=== PATIENT | female | born 1965 | race Caucasian/White ===

== ENCOUNTER 2016-08-28 16:14 | Observation (INO) | payer OTHER ==
[~2016-08-28] VITALS: Ht 152.4 cm; Wt 88.1 kg
[~2016-08-28 16:14] MED LIST: ASPI81TA3 PO; ATOR20TA65 PO; IBUP-1827 PO; INSU100V7; LISI-610 PO; LVF250T PO; METF500T7 PO
[2016-08-28 16:19] VITALS: BP 133/96; PULSE 86; RESP 18; O2SAT 97
--- NOTE | 2016-08-28 16:27 | ED.REPORT ---
HPI-Stroke / CVA Aug 28, 2016 ED Provider: Raul Hernández MD Pt is a 50 y/o female w/ a hx of IDDM, TIA, HTN, presenting to the ED c/o gradually improving stroke-like symptoms onset 15:00 today. The patient is not anticoagulated. She takes ASA daily. Pt suddenly felt dizzy and off balanced and developed right sided facial numbness and now is experiencing right-sided weakness, numbness, and blurred vision. Pt denies recent trauma, speech changes , CP, SOB, vomiting. She was seen April 2015 for a TIA in which she experienced right sided numbness and weakness. Nursing Notes Stated Complaint: SYMTOMS OF TIA Chief Complaint: Neuro Symptoms/ Deficits Nursing Notes Reviewed: Yes Allergies: Coded Allergies: iodine (Verified Allergy, Severe, 08/28/16) Penicillins (Verified Allergy, Mild, rash, 08/28/16) Scheduled Aspirin Chew (Aspirin Chew) 81 Mg Tablet 81 MG PO DAILY Atorvastatin Calcium (Atorvastatin Calcium) 20 Mg Tablet 20 MG PO HS Insulin Glargine (Lantus U100 Insulin Vial) 100 Unit/Ml Vial 50 UNIT SUBQ HS ( Reported) Lisinopril (Zestril) 10 Mg Tablet 10 MG PO HS (Reported) General Time Seen by Provider: 16:28 Chief Complaint Numbness Right-sided Hx Obtained From: Patient Arrived By: Walk-in Time last known well 15:00 Sudden in Onset?: Yes Symptom Duration: Since onset Progression Since Onset: Gradually improving Severity: Current: No pain currently Severity: Maximum: No pain Recent Healthcare: Previous diagnosis Similar Sx Previous: Yes Risk Factors )( TPA Administration/Criteria Stroke Thrombolytic Therapy : TPA Considered: Yes Neurologist Contacted: Yes TPA Administered Intravenously: No, not indicated NIH Stroke Scale Level of Consciousness: Alert and responsive (0) Ask Month & Age: Both questions right (0) Open/Close Eyes/Hand Footwear Sales Associate: Performs both tasks (0) Horizontal EO Movements: None (0) Visual Espinosa: No visual loss (0) Facial Palsy: Normal symmetry (0) Right Arm Motor Drift (10s): No drift 10 sec (0) Left Arm Motor Drift (10s): No drift 10 sec (0) Right Leg Motor Drift (5s): Drift, not touch bed (1) Left Leg Motor Drift (5s): No drift 5 sec (0) Limb Ataxia FNF/Heel-Olivarez: No ataxia (0) Sensation (Arms/Legs/Face): No sensory loss (0) Language Aphasia: No aphasia, normal (0) Dysarthria: No dysarthria, normal (0) Extinction/Inattention: No exctinct/inattent (0) NIHSS Score: 1 Time NIHSS Performed: 16:43 Date NIHSS Performed: Aug 28, 2016 Past Medical History Past Medical History IDDM TIA Asthma Hypertension Anxiety Depression Past Surgical History Tubal ligation Smoking History Never Smoker Social History Other Social History: , Local resident Occupation WATER SUPPLY TECHNICIAN at [employer] Ambulatory Status Independent Review of Systems Eyes: Reports: Blurred right Respiratory: Denies: Shortness of breath Cardiovascular: Denies: Chest pain Neurologic: Reports: Dizziness, Focal weakness, Numbness, Problem walking, Vision change, Denies: Slurred speech, Unable to speak Complete sys rev & neg: except as marked. Physical Exam Initial Vital Signs Vital Signs (First) Date Time Temp Pulse Resp B/P Pulse Ox O2 Delivery O2 Flow Rate FiO2 08/28/16 16:19 35.6 86 18 133/96 97 Room Air Initial VS: Reviewed, Vital signs normal ENT: Mucous membranes moist, Conjunctiva normal, No scleral icterus Abdomen / GI: Soft, Non-tender, No guarding, No rebound, No distention Extremities: Vascular intact, Neuro intact, No swelling, No tenderness Skin: Warm, Dry, No cyanosis Psychiatric: Mood/affect normal, Behavior normal, Normal thought content General/Constitutional: Awake, Alert, No acute distress, Well appearing, Cooperative, Not toxic appearing Head / Eyes: Atraumatic, Normocephalic, PERRL, EOMI, No nystagmus, No periorbital redness, No periorbital swelling Neck: Atraumatic, Supple, No meningismus, Full range of motion Respiratory / Chest: Atraumatic, Breath sounds NL, Breath sounds = bilat, No respiratory distress, No rales, No rhonchi, No wheezing, No retractions, No stridor, No chest tenderness, No chest wall deformity, No crepitus Cardiovascular: Heart rate NL, Regular rhythm, Heart sounds NL, No gallop, No murmurs, No rubs, Cap refill not delayed, Peripheral circulation NL Neurologic: Oriented X3, Speech NL, No sensory deficits, CN II - XII intact, Cerebellar NL, Memory NL NIH = 1 Interpretation & Diagnostics Interpretation & Diagnostics: Head/neck CTA with brain perfusion: IMPRESSION: 1. High grade stenosis of the supraclinoid segments of the internal carotid arteries bilaterally which could be secondary to soft atherosclerotic plaque, moyamoya disease or less likely nonocclusive thrombus. 2. Vertebral arteries are fully patent bilaterally. 3. Findings telephoned to Dr. Raul Hernández on 08/28/2016 at 1823 hrs. Dictated by: Denise Salgado MD, PhD on 08/28/2016 at 18:14 Approved by: Denise Salgado MD, PhD on 08/28/2016 at 18:27 Lab Results Interpretation Result Diagram: 08/28/16 1642 08/28/16 1642 Test 08/28/16 16:42 White Blood Count 6.1th/mm3 (3.8-10.1) Red Blood Count 4.93mil/mm3 (3.90-5.20) Hemoglobin 15.2g/dL (12.0-15.6) Hematocrit 42.0% (35.0-46.0) Mean Corpuscular Volume 85.2fL (81-100) Mean Corpuscular Hemoglobin 30.8pg (27.0-35.0) Mean Corpuscular Hemoglobin Concent 36.2% (32.0-37.0) Red Cell Distribution Width 12.1% (12.3-15.4) Platelet Count 229bil/L (150-400) Neutrophils (%) (Auto) 42.2% (40-74) Lymphocytes (%) (Auto) 46.6% (14-46) Monocytes (%) (Auto) 9.0% (4-12) Eosinophils (%) (Auto) 1.5% (0-5) Basophils (%) (Auto) 0.5% (0-3) Prothrombin Time 9.9sec (8.1-12.5) Prothromb Time International Ratio 0.93ratio Activated Partial Thromboplast Time 22.9sec (22.8-33.0) Sodium Level 134mEq/L (134-144) Potassium Level 4.4mEq/L (3.5-5.2) Chloride Level 97mEq/L (97-108) Carbon Dioxide Level 21mmol/L (18-29) Blood Urea Nitrogen 18mg/dL (6-24) Creatinine 0.43mg/dL (0.57-1.00) Estimat Glomerular Filtration Rate 224mL/min (>59) Glucose Level 414mg/dL (60-99) Calcium Level 8.9mg/dL (8.5-10.1) Total Bilirubin 0.3mg/dL (0.0-1.2) Aspartate Amino Transf (AST/SGOT) 16U/L (0-50) Alanine Aminotransferase (ALT/SGPT) 15U/L (0-32) Alkaline Phosphatase 101U/L (25-150) Troponin T < 0.010ug/L (0.0-0.011) Total Protein 6.9g/dL (6.4-8.4) Albumin 4.1g/dL (3.4-5.0) Hold Ansari Top Tube Received (Received) ECG Interpretation ECG Interpretation: Sinus rhythm rate 83 LVH Time: 16:59 Interpreted by: ED physician Normal ECG Interpretation: No acute ischemic changes, No change from prior ECGs CT Head Interpretation IMPRESSION: No stroke or hemorrhage, no mass identified. No contraindication to TPA administration found. This information was immediately called to the ordering health care provider at 4:40 in the afternoon. This study fulfills neurological imaging criteria for inclusion or exclusion of acute stroke therapies based on available published neurological imaging guidelines. Dictated by: Wes Power M.D. on 08/28/2016 at 16:38 Approved by: Wes Power M.D. on 08/28/2016 at 16:41 Study: Head CT no contrast Interpretation / Wet Read by: Interpret - Radiologist Re-Eval/Medical Decision Med Decision/Clinical Course 50-year-old female history of TIA, insulin-dependent diabetes presenting with right face numbness, right upper extremity and right lower extremity weakness started at 3 PM today. Patient arrived in code stroke was called immediately. CT head performed immediately with no evidence of hemorrhage. Blood sugar 300s. Blood pressure is 140s over 80. NIH stroke scale 1 for right lower extremity drift. [place] neurology consulted immediately recommended no TPA given low stroke scale. They recommended CT angiogram brain which was performed which showed high-grade stenosis cavernous supraclinoid internal carotids bilateral. Consulted [place] neurology again who did not think any indication for intervention at this time. Recommended admission at our hospital for stroke workup with MRI, echocardiogram, aspirin and Plavix for 90 days. Source of Hx: Old records Re-Evaluation/Progress #1: Time of Eval: 17:18 Re-Evaluation/Progress Note: Pt rechecked. She is feeling better and symptoms have improved. Of note, she was able to walk independently to the bathroom prior to this recheck. She has an allergy to contrast listed but she denies that this is true. Re-Evaluation/Progress #2: Time of Eval: 18:41 Re-Evaluation/Progress Note: Pt rechecked. Informed pt of need for admission for further evaluation. Pt understands and agrees with plan for admission. All questions addressed. Consultation #1: Consulted With: Neurology Call Returned at: 16:57 Note: Case discussed with [place] neurologist. Does not recommend TPA. 1830: Recallled neurologist after CTA is back. Recommends admit. Consultation #2: Referral / Consult Name: Michael Daniel MD Consulted With: Hospitalist Call Returned at: 18:47 Acoustical Tile Patternmaker: Will see patient, Agrees with eval, Agrees with plan, Accepts admit Note: Case discussed. Counseled Regarding: Diagnosis, Lab results, Need for admission Patient Discharge & Departure Impression: Primary Impression: CVA (cerebral vascular accident) CVA mechanism: stenosis Precerebral and cerebral artery: unspecified precerebral artery Qualified Code: I63.20 - Cerebral infarction due to unspecified occlusion or stenosis of unspecified precerebral arteries Ruled Out: Allergy to iodine Disposition: ADMITTED TO HOSPITAL Discharge Condition All VS Reviewed: Yes Condition: Stable Referrals: Toño Laguna MD (PCP) Ariane Attestation Portions of this note were transcribed by Herrera Jackson. I, Dr. Hernández personally performed the history, physical exam and medical decision-making; I reviewed and confirmed the accuracy of the information in the transcribed note. Signed by Ariane Quarles, 08/28/16 - [id number] copies to: Toño Laguna MD, Ben M MD Aug 28, 2016 16:27 HERRERA JACKSON Aug 28, 2016 16:31
--- NOTE | 2016-08-28 16:42 | DRSVH ---
PROCEDURE: CT BRAIN (TPA) ([id number]) INDICATIONS: Stroke TECHNIQUE: Noncontrast 4.5 mm thick angled axial sections acquired from the foramen magnum to the vertex, with c oronal reformats. COMPARISON: [facility], CT, CT BRAIN WO CON, 04/24/2015, 21:38. FINDINGS: Image quality: Excellent. CSF spaces: Basal cisterns are patent. No extra-axial fluid collections. Ventricles are normal in size and shape. Brain: No midline shift. No intracranial masses or hemorrhage. Thurman-white matter interface is norm al. Skull and face: Calvarium and visualized facial bones are intact, without suspicious lesions. Sinuses: Visualized sinuses and mastoids are clear. IMPRESSION: No stroke or hemorrhage, no mass identified. No contraindication to TPA administration f ound. This information was immediately called to the ordering health care provider at 4:40 in the [facility]. This study fulfills neurological imaging criteria for inclusion or exclusion of acute stroke therapie s based on available published neurological imaging guidelines. Dictated by: Wes Power M.D. on 08/28/2016 at 16:38 Approved by: Wes Power M.D. on 08/28/2016 at 16:41
[2016-08-28] MEDS ORDERED: INSU100V7 SUBQ (16:46)
[2016-08-28 16:47] VITALS: BP 140/80; PULSE 85; RESP 23; O2SAT 96
[2016-08-28 16:54] LABS: BASOPHILS % (AUTO) 0.5 % (0-3); EOSINOPHILS % (AUTO) 1.5 % (0-5); Mean Corpuscular Hemoglobin 30.8 pg (27.0-35.0); Mean Corpuscular Volume 85.2 fL (81-100); NEUTROPHILS % (AUTO) 42.2 % (40-74); Platelet Count 229 bil/L (150-400)
[2016-08-28 17:08] LABS: INR 0.93 ratio
[2016-08-28 17:28] LABS: TROPONIN T < 0.010 ug/L (0.0-0.011)
[2016-08-28] MEDS ORDERED: Insulin LISPRO 300 Unit/3 mL Inj SUBQ ONE (17:55)
--- NOTE | 2016-08-28 18:28 | DRSVH ---
PROCEDURE: CT ANGIO HEAD AND NECK (P) INDICATIONS: STAT READ - CALL ED PROVIDER W/RESULTS TECHNIQUE: Pre-contrast 4.5 mm thick sections acquired from the foramen magnum to the vertex. After the adminis tration of intravenous contrast, 1 mm thick sections acquired from the aortic arch through the [place] of [place]. Post-contrast 4.5 mm thick sections then re-acquired from the foramen magnum to the vert ex. 3-dimensional rorhcgf-fmeqywlhg-jwbaxppgaq (MIP) and/or volume rendering reformats were acquired of the central intracranial vasculature and neck separately. For radiation dose reduction, the foll owing was used: automated exposure control, adjustment of mA and/or kV according to patient size. COMPARISON: [facility], CT, BRAIN (TPA), 08/28/2016, 16:34. FINDINGS: Image quality: Excellent. BRAIN: CSF spaces: Ventricles are normal in size and shape. Basal cisterns are patent. No extra-axial flu id collections. Brain: No midline shift. No intracranial bleeds or masses. Thurman-white matter interface appears int act. Skull and face: Calvarium and facial bones appear intact, without suspicious lesions. Orbits appear normal. Sinuses: Mucosal thickening noted in the floors of the maxillary sinuses bilaterally. The mastoids are clear. HEAD CT ANGIOGRAPHY: Anterior circulation: Calcified atherosclerotic plaque noted in the cavernous segments of the internet sales consultant al carotid arteries bilaterally. There is high-grade stenosis of the supraclinoid segments internal carotid arteries bilaterally. High-grade stenosis may be related to soft atherosclerotic plaque, hodan amoya disease or less likely nonocclusive thrombus. The flow within the paired anterior cerebral art eries is normal and symmetric. The flow within the middle cerebral arteries is normal and symmetric. The anterior communicating artery is seen. Normal flow in the posterior to meeting arteries is note d. No aneurysms are seen. Posterior circulation: Visualized portions of the vertebral arteries demonstrate normal caliber, and join to form a normal appearing basilar artery. Flow within the posterior cerebral arteries is norm al and symmetric. No aneurysms are seen. Dural sinuses enhance normally. NECK CT ANGIOGRAPHY: Carotid system: The great vessels demonstrate a conventional anatomy as they arise from the aortic a rch. The origins of the common carotid arteries appear patent. The common carotid arteries demonstr ate normal caliber and courses. The bifurcation regions are both widely patent. The internal caroti d arteries demonstrate normal calibers and courses. Posterior circulation: The origins of the vertebral arteries both appear widely patent. The more arreola perior extracranial portions of both vertebral arteries also demonstrate normal courses and calibers. They join to form a normal appearing basilar artery. Soft tissues: Visualized neck soft tissues demonstrate no suspicious abnormalities. Bones: No suspicious bony lesions. Visualized cervical spine appears normally aligned. IMPRESSION: 1. High grade stenosis of the supraclinoid segments of the internal carotid arteries bilaterally whi ch could be secondary to soft atherosclerotic plaque, moyamoya disease or less likely nonocclusive th rombus. 2. Vertebral arteries are fully patent bilaterally. 3. Findings telephoned to Dr. Raul Hernández on 08/28/2016 at 1823 hrs. Dictated by: Denise Salgado MD, PhD on 08/28/2016 at 18:14 Approved by: Denise Salgado MD, PhD on 08/28/2016 at 18:27
[2016-08-28] MEDS ORDERED: Alum-Mag Hydrox-Simeth 30 mL Suspension PO PRN (18:50)
[2016-08-28] MEDS ORDERED: Ondansetron 2 mg/mL 2 mL Inj IVPUSH PRN (18:50)
[2016-08-28] MEDS: 0.9% Sodium Chloride 1,000 ML IV SCH (19:08)
[2016-08-28] MEDS ORDERED: Polyethylene Glycol (PEG) 17 Gm Powder PO PRN (19:10)
[2016-08-28] MEDS ORDERED: Glucose 40% Oral Gel 15 Gm Tube PO PRN (19:15)
--- NOTE | 2016-08-28 19:58 | PCM.HPMED ---
Subjective Date of Service Aug 28, 2016 Primary Provider: Admitting Physician: Michael Daniel MD Primary Care Physician: Sergei Steven DO Attending Physician: Michael Daniel MD Admit Status: From the Emergency Department, 23-Hour Observation Chief Complaint: Right-sided weakness/2 hrs Right facial numbness/2 hrs Vertigo and right visual disturbance/2hrs History of Present Illness: 50-year-old lady with past medical history of TIA, diabetes, asthma, hypertension, anxiety/depression came into emergency room due to sudden onset right-sided weakness, right facial numbness, right eye visual disturbance, headache, vertigo of 2 hrs. Last known to be well at 3 PM. She states she developed sudden onset right facial numbness and right-sided headache at 3 PM. She also noted flashing of light on her right eye. She went to the bathroom and she also had an episode of vertigo, she describes it as the room spinning. She then noted her right facial numbness progressing to involve right arm numbness and weakness which prompted ED visit. She states most of her symptoms were resolving immediately after she arrived in ED. She had similar symptoms 1 year ago and was treated as TIA. She takes aspirin 81 mg daily and atorvastatin. She has diabetes poorly controlled, she was recently switched to Lantus 50 units at bedtime from Humalog and metformin. in ED, BP 133/96, HR 86, initial NIHSS 1 ( right leg drift) .on my reval 0 CTA High grade stenosis of the supraclinoid segments of the internal carotid arteries bilaterally which could be secondary to soft atherosclerotic plaque, moyamoya disease or less likely nonocclusive thrombus. [facility] neurology consulted ,not a candidate for tpa due rapidly resolving symptoms and low NIHSS . Recommended treating her with aspirin and Plavix for 3 months and single antiplatelet after that Review of Systems: A comprehensive review of systems performed, pertinent positives and negatives included in history of present illness Allergies Coded Allergies: iodine (Verified Allergy, Severe, 08/28/16) Penicillins (Verified Allergy, Mild, rash, 08/28/16) Home Medications Aspirin 81 mg by mouth daily atorvastatin 40 mg by mouth daily Lantus 50 units at bedtime Lisinopril 10 mg daily Metformin recently discontinued PMH TIA, diabetes, asthma, she does not use any inhalers hypertension, anxiety/depression Surgical History tubal ligation Family History her father had stroke recently at age 76 Social History Hx Alcohol Use: No Hx Substance Use: No Hx Tobacco Use: No Smoking Status: Never Smoker Exam Vital Signs Vital Sign - Last Date Time Temp Pulse Resp B/P Pulse Ox O2 Delivery O2 Flow Rate FiO2 08/28/16 16:47 85 23 140/80 96 Room Air 08/28/16 16:19 35.6 Exam Gen. patient is lying comfortably in hospital bed HEENT: Head is normocephalic atraumatic, Pupils equal and reactive, extraocular movements intact, Lungs clear to auscultation bilaterally Heart regular rate and rhythm without murmurs gallops or rubs Abdomen soft nontender without hepatosplenomegaly Extremities pulses are present dorsalis pedis posterior tibialis and radial. tSkin is warm and dry there are no rashes, Psych alert and oriented to person place and time Neuro cranial nerves II through XII are grossly intact.on my initial exam RLE power 4/5,5/5 all over on repeat exam,no motor or sensory deficit now.speech clear Lymph: There is no lymphadenopathy appreciated in the cervical supra infraclavicular regions : no rivers Lab and Diagnostics Result Diagram: 08/28/16 1642 08/28/16 1642 X-Rays, CTs and MRIs PROCEDURE: CT ANGIO HEAD AND NECK (P) INDICATIONS: STAT READ - CALL ED PROVIDER W/RESULTS IMPRESSION: 1. High grade stenosis of the supraclinoid segments of the internal carotid arteries bilaterally which could be secondary to soft atherosclerotic plaque, moyamoya disease or less likely nonocclusive thrombus. 2. Vertebral arteries are fully patent bilaterally. 3. Findings telephoned to Dr. Raul Hernández on 08/28/2016 at 1823 hrs. Dictated by: Denise Salgado MD, PhD on 08/28/2016 at 18:14 PROCEDURE: MRI BRAIN WITHOUT CONTRAST ([id number]) INDICATIONS: TIA IMPRESSION: 1. No acute intracranial disease process. 2. No areas of acute infarction. 3. Small, chronic left cerebellar hemisphere lacunar infarct. 4. Minimal periventricular and subcortical white matter chronic microvascular ischemic changes. 5. Mild bilateral maxillary sinus mucosal thickening. Dictated by: Denise Salgado MD, PhD on 08/28/2016 at 20:36 PROCEDURE: MRA ANGIOGRAM HEAD WITHOUT CONTRAST ([id number]) INDICATIONS: Right facial numbness. r/o Cerebral vein thrombosis IMPRESSION: No evidence of dural sinus thrombosis. Dictated by: Denise Salgado MD, PhD on 08/28/2016 at 20:33 Assessment & Plan 50-year-old lady with past medical history of TIA, diabetes, asthma, hypertension, anxiety/depression came into emergency room due to sudden onset right-sided weakness, right facial numbness, right eye visual disturbance, headache, vertigo of 2 hrs. # TIA ,acute,poa,resolved -initial NIHSS 1 ,now 0 -Patient has TIA while on aspirin. Started her on double antiplatelet as per [place] nephrology recommendation. Recommended single antiplatelet after 3 months -Initial concern for cerebral vein thromboses due to Patient's TIA symptoms atypical given headache and right visual disturbance. She also has risk factors for vein thrombosis with uncontrolled diabetes, initial blood glucose in the 400s. MRV performed and negative for thromboses. D-dimer also negative -MRA negative for acute stroke -PT/OT/speech eval and therapy -Lipid panel in am -Continue statin -May need to consider Holter monitor to rule out occult arrhythmia upon discharge given repeat TIA -echo in am -telemetry,sinus rythm so far #Uncontrolled diabetes, poa, chronic -Initial glucose in the 400s -Continue Lantus 50 units at bedtime, lisipro given in ED -Sliding-scale high correction -a1c pending #Hypertension, chronic -BP ok now -May resume lisinopril in the morning Full code ,names her Tung as POA,tel [phone] Patient admitted under observation status with expected length of stay < 2 midnights for severity of present symptoms, complexities of treatment plan and risk for adverse events. Possible discharge tomorrow once workup is completed Resuscitation Status: CPR: Attempt Resuscitation Time spent 40 minutes copies to: Sergei Steven Melaku MD Aug 28, 2016 19:58
[2016-08-28 20:28] VITALS: BP 138/92; PULSE 84; RESP 16; O2SAT 96
--- NOTE | 2016-08-28 20:37 | DRSVH ---
PROCEDURE: MRA ANGIOGRAM HEAD WITHOUT CONTRAST ([id number]) INDICATIONS: Right facial numbness. r/o Cerebral vein thrombosis TECHNIQUE: Sagittal T1 spin echo through the brain. Coronal 2D ssmc-mb-wqerlf MR venogram, with 3-dimensional m zktull-lxhddyece-ycowvtdzzd (MIP) reformats of the intracranial veins then performed. COMPARISON: [facility], CT, CT ANGIO BRAIN AND NECK, 08/28/2016, 17:39. FINDINGS: Image quality: Excellent. Veins: Sagittal, straight, transverse, and sigmoid sinuses all appear patent. Inferior sagittal sinu s and straight sinus are patent. The internal cerebral veins and vein of Zeke are patent. Brain: Limited images through the brain parenchyma show no intracranial bleeds or mass effects. IMPRESSION: No evidence of dural sinus thrombosis. Dictated by: Denise Salgado MD, PhD on 08/28/2016 at 20:33 Approved by: Denise Salgado MD, PhD on 08/28/2016 at 20:36
[2016-08-28 20:40] VITALS: PULSE 79
--- NOTE | 2016-08-28 20:41 | DRSVH ---
PROCEDURE: MRI BRAIN WITHOUT CONTRAST ([id number]) INDICATIONS: TIA TECHNIQUE: Noncontrast axial T1 spin echo, axial T2 fast spin echo, sagittal and axial FLAIR, coronal T2 fast sp in echo, axial gradient echo, axial diffusion and ADC through the brain. COMPARISON: None. FINDINGS: Image quality: Excellent. CSF Spaces: Basal cisterns are patent. No extra-axial fluid collections. Ventricles are normal in size and shape. Brain: No intracranial masses or hemorrhage. Thurman/white matter interface is normal. Brainstem appe ars normal. Diffusion-weighted images demonstrate no acute ischemic insult. A few, scattered, puncta te foci of increased T2 signal noted in the periventricular and subcortical white matter tracts merissa tible with minimal chronic microvascular ischemic change. Old, very small, lacunar infarct noted in the left cerebellar hemisphere. Normal intravascular flow voids are present. Skull and face: Calvarium has normal marrow signal. Orbits appear normal. Sinuses: Mucosal thickening is noted in the maxillary sinuses bilaterally. The mastoids are clear. IMPRESSION: 1. No acute intracranial disease process. 2. No areas of acute infarction. 3. Small, chronic left cerebellar hemisphere lacunar infarct. 4. Minimal periventricular and subcortical white matter chronic microvascular ischemic changes. 5. Mild bilateral maxillary sinus mucosal thickening. Dictated by: Denise Salgado MD, PhD on 08/28/2016 at 20:36 Approved by: Denise Salgado MD, PhD on 08/28/2016 at 20:40
[2016-08-28] MEDS ORDERED: Insulin GLARgine 100 Unit/mL Syringe SUBQ SCH (21:00)
[2016-08-28] MEDS: Insulin LISPRO 300 Unit/3 mL Inj SUBQ SCH (21:42)
--- NOTE | 2016-08-28 22:45 | NUR ---
Admit Pt brought to room from ED with and all belongings, alert and oriented x4. Walked to bed, then ten minutes later went to have MRI downstairs. Returned alert and oriented x4, did assessments at this time. Pt cooperative, complained of numbness on face around R eye. Took all PO medications with no coughing or choking issues. Will continue to monitor.
[2016-08-29 00:45] VITALS: BP 124/76; PULSE 72; RESP 16; O2SAT 99
[2016-08-29] MEDS: 0.9% Sodium Chloride 1,000 ML IV SCH ×2 (03:08→11:08)
[2016-08-29 05:32] VITALS: BP 132/84; PULSE 73; RESP 16; O2SAT 94
[2016-08-29 07:46] LABS: Magnesium 1.5 mg/dL (1.6-2.6)
[2016-08-29 08:00] VITALS: PULSE 79
--- NOTE | 2016-08-29 09:11 | NUR ---
Social Work: Brief Note Data: Pt is a 50 y/o female admitted for SVA. Pt's PCP is Dr Steven, pt's insurance is self pay. EMR reviewed. HEATING ENGINEER met with pt and confirmed self pay status. Pt states she is in between insurances, and accepted the ashwini care application. PT recommending home for d/c. No further d/c planning needs anticipated at this time. HEATING ENGINEER will continue to follow if needs arise. Assessment: Pt who is independent at baseline. Plan: Pt will d/c home via POV when medically stable. Ashwini care application given. No further d/c planning needs anticipated at this time. HEATING ENGINEER will continue to follow if needs arise. PHIL Gilbert
--- NOTE | 2016-08-29 09:11 | NUR ---
Pt. screened. No OT needs. DC order
--- NOTE | 2016-08-29 09:22 | NUR ---
Evaluation completed. Rec: Thin/Regular. Medication as tolerated. WAITER to sign off. Refer with new or worsening condition. Please go to "Notes" then click on "Assessments and Notes" (bottom left corner of screen). Then select appropriate discipline tab on top of screen.
[2016-08-29] MEDS: Insulin LISPRO 300 Unit/3 mL Inj SUBQ SCH ×3 (09:58→17:14)
[2016-08-29 10:15] VITALS: BP 119/73; PULSE 77; RESP 16; O2SAT 95
--- NOTE | 2016-08-29 10:45 | NUR ---
Social Work: Discharge Data: Pt is on day 1 of hospitalization. EMR reviewed. Pt discussed in rounds. D/C orders are in. No further d/c planning needs anticipated at this time. Assessment: Pt who is independent at baseline. Plan: Pt will d/c home today via POV. No further d/c planning needs anticipated at this time. ACUTE CARE NURSE PRACTITIONER will follow if needs arise. PHIL Gilbert
[2016-08-29 14:39] VITALS: BP 148/83; PULSE 77; RESP 18; O2SAT 96
--- NOTE | 2016-08-29 14:56 | DRSVH ---
[facility] [address] [place] [address] Echocardiogram Report Name: CHAPIN VELAZQUEZ te: 08/29/2016 Height: 60 in Hospital Exam Location: [facility] Weight: 194 lb Gender: Female BSA: 1.8 m2 : 1965 Age: 50 yrs BP: 132/84 mmHg Reason For Study: TIA Ordering Physician: Performed By: Dee Salgado Referring Physician: Kelsey Steven Interpretation Summary 1) Normal left ventricular thickness, size, wall motion, and systolic function (EF 60-65%). 2) Normal right ventricular size and function. 3) No significant valvular abnormalities. 4) Injection of contrast documented an interatrial shunt (PFO). 5) No prior Echo available for comparison. Procedure: A two-dimensional transthoracic echocardiogram with color flow and Doppler was performed. The study quality was technically good. There is no prior echocardiogram noted for this patient. The patient was in normal sinus rhythm during the exam. Left Ventricle: The left ventricle is normal in size, wall thickness, and systolic function without any focal wall motion abnormalities. The ejection fraction is estimated to be 60-65%. Assessment of diastolic parameters indicates normal left ventricular diastolic function and normal filling pressures. Right Ventricle: The right ventricle is normal in size and function. Atria: The left atrium is moderately dilated. Right atrial size is normal. Injection of contrast documented an interatrial shunt. Mitral Valve: The mitral valve is normal in structure and function. There is no mitral regurgitation noted. Aortic Valve: The aortic valve is trileaflet. The aortic valve opens well. There is no aortic valve stenosis. No aortic regurgitation is present. Tricuspid Valve: The tricuspid valve is normal in structure and function. There is trace tricuspid regurgitation. The right ventricular systolic pressure is estimated at 29 mmHg assuming a right atrial pressure of 3 mm Hg. Pulmonic Valve: The pulmonic valve is normal in structure and function. There is no pulmonic valvular stenosis. There is trace pulmonic regurgitation. Great Vessels: The aortic root is normal size. The dimensions of the ascending aorta are normal. The IVC is of normal diameter and collapses greater than 50% with a sniff. This suggests a low right atrial pressure of 3 mm Hg. Pericardium/ Pleura There is no pericardial effusion. There is no pleural effusion. MMode/2D Measurements & Calculations LVIDd: 4.6 cm LA dimension: 4.3 cm RA long axis Ao root diam LVIDs: 2.9 cm FS: 37.8 % LA A2 area: 22.3 cm RA area Aortic Jxn: 2.0 cm IVSd: 0.94 cm LA A4 area: 22.5 cm asc Aorta Diam LVPWd: 0.86 cm LA length (vol) : 12.7 cm RA vol Ao Arch Diam (Prox LA vol: 75.3 ml : 32.1 ml Trans): 2.5 cm LA vol index RA : 17.4 mm/ RVDd major IVC diam: 2.2 cm : 5.6 cm LV sellers. diameter/BSA LV sys. diameter/BSA RVD1 (basal) RVD2 (mid): 2.1 cm (cm/m^2): 2.5 (cm/m^2): 1.5 Doppler Measurements & Calculations Ao V2 max MV E max sreedhar MV E/A: 1.2 TR max sreedhar : 147.8 cm/sec : 99.9 cm/sec Med Peak E' Sreedhar : 253.4 cm/sec Ao max PG MV A max sreedhar TR max PG : 8.7 mmHg : 81.5 cm/sec E/E' med: 11.9 : 25.7 mmHg Ao mean PG MV P1/2t: 70.5 msec Lat Peak E' Sreedhar PA V2 max : 4.4 mmHg : 78.6 cm/sec E/E' lat: 9.0 PA mean PG E/e' average: 10.5 PA Accel Time : 0.13 sec MV dec time MV P1/2t max sreedhar Ao V2 mean PA V2 mean : 0.23 sec : 94.9 cm/sec : 54.7 cm/sec MVA(P1/2t): 3.1 cm2 Ao V2 VTI: 28.2 cm Reading Physician:02:55 PM
[2016-08-29] MEDS ORDERED: CLOP75TA28 PO (16:37)
--- NOTE | 2016-08-29 16:42 | PCM.DIMED ---
Discharge Instructions Date of Service Aug 29, 2016 Dates of Hospitalization Aug 28, 2016 at 18:51 Discharge Diagnosis Discharge Diagnosis # Acute and transient right-sided weakness, right facial numbness, right eye visual disturbance, headache, and vertigo suspicious for acute transient ischemic attack (TIA). present on admission. Resolved. # Chronic diabetes mellitus. poorly controlled. - HgA1C 12.6 # Hypertension, chronic. stable Medication Instructions Take both Aspirin and Plavix (Clopidogrel) for 3 month and then after that you may stop taking Aspirin but should continue with Plavix. Followup with your primary care provider in the meantime for possible further recommendations. Diet Low fat, Low Sodium, Heart Healthy, Diabetic Activity No restrictions Call your provider Fever or Chills, Shortness of breath, Bleeding, Chest pain, Weakness (unilateral ) Patient Instructions Seek immediate medical attention if any new or worsening signs or symptoms occur. Follow-up plan 1. Followup with primary care provider in 4-7 days for further management of your diabetes and consideration of possible outpatient neurology referral. Follow-up Provider: Sergei Steven Masoud Aug 29, 2016 16:42
--- NOTE | 2016-08-29 18:15 | NUR ---
discharge Orders to discharge pt to home. Neuro WNL today, denies any further numbness or weakness. IV x2 d/c'd intact. Reviewed discharge instructions and medications with pt, pt verbalized understanding. Hard copy of Rx given to pt. Pt to f/u with PCP Dr. Steven in 4-7 days and instructed to call for appt, phone number provided. Care notes given on TIA, stroke booklet, plavix, aspirin, heart healthy diet. Escorted out via wheelchair with GUM REMOVER and discharged to home with all belongings and in stable condition. Discharged to home at 1755.
--- NOTE | 2016-08-29 19:40 | PCM.DC.MED ---
Discharge Summary Date of Service Aug 29, 2016 Dates of Hospitalization Date of Hospital Admission Aug 28, 2016 at 18:51 Date of Discharge: Aug 29, 2016 Providers: Admitting Physician: Michael Daniel MD Primary Care Physician: Sergei Steven DO Attending Physician: Michael Daniel MD Diagnosis at Time of Discharge Diagnosis at Time of Discharge # Acute and transient right-sided weakness, right facial numbness, right eye visual disturbance, headache, and vertigo suspicious for acute transient ischemic attack (TIA). present on admission. Resolved. # Chronic diabetes mellitus. poorly controlled. - HgA1C 12.6 # Hypertension, chronic. stable Procedures XRay, CTs & MRIs PROCEDURE: CT ANGIO HEAD AND NECK (P) INDICATIONS: STAT READ - CALL ED PROVIDER W/RESULTS IMPRESSION: 1. High grade stenosis of the supraclinoid segments of the internal carotid arteries bilaterally which could be secondary to soft atherosclerotic plaque, moyamoya disease or less likely nonocclusive thrombus. 2. Vertebral arteries are fully patent bilaterally. 3. Findings telephoned to Dr. Raul Hernández on 08/28/2016 at 1823 hrs. Dictated by: Denise Salgado MD, PhD on 08/28/2016 at 18:14 PROCEDURE: MRI BRAIN WITHOUT CONTRAST ([id number]) INDICATIONS: TIA IMPRESSION: 1. No acute intracranial disease process. 2. No areas of acute infarction. 3. Small, chronic left cerebellar hemisphere lacunar infarct. 4. Minimal periventricular and subcortical white matter chronic microvascular ischemic changes. 5. Mild bilateral maxillary sinus mucosal thickening. Dictated by: Denise Salgado MD, PhD on 08/28/2016 at 20:36 PROCEDURE: MRA ANGIOGRAM HEAD WITHOUT CONTRAST ([id number]) INDICATIONS: Right facial numbness. r/o Cerebral vein thrombosis IMPRESSION: No evidence of dural sinus thrombosis. Dictated by: Denise Salgado MD, PhD on 08/28/2016 at 20:33 Cardiac Echo Impression Date of Service: 08/29/162123 Echocardiogram Report Interpretation Summary 1) Normal left ventricular thickness, size, wall motion, and systolic function (EF 60-65%). 2) Normal right ventricular size and function. 3) No significant valvular abnormalities. 4) Injection of contrast documented an interatrial shunt (PFO). 5) No prior Echo available for comparison. Reading Physician:02:55 PM Brief History As noted in H&P by Dr. Daniel: 50-year-old lady with past medical history of TIA, diabetes, asthma, hypertension, anxiety/depression came into emergency room due to sudden onset right-sided weakness, right facial numbness, right eye visual disturbance, headache, vertigo of 2 hrs. Last known to be well at 3 PM. She states she developed sudden onset right facial numbness and right-sided headache at 3 PM. She also noted flashing of light on her right eye. She went to the bathroom and she also had an episode of vertigo, she describes it as the room spinning. She then noted her right facial numbness progressing to involve right arm numbness and weakness which prompted ED visit. She states most of her symptoms were resolving immediately after she arrived in ED. She had similar symptoms 1 year ago and was treated as TIA. She takes aspirin 81 mg daily and atorvastatin. She has diabetes poorly controlled, she was recently switched to Lantus 50 units at bedtime from Humalog and metformin. in ED, BP 133/96, HR 86, initial NIHSS 1 ( right leg drift) .on my reval 0 CTA High grade stenosis of the supraclinoid segments of the internal carotid arteries bilaterally which could be secondary to soft atherosclerotic plaque, moyamoya disease or less likely nonocclusive thrombus. [facility] neurology consulted ,not a candidate for tpa due rapidly resolving symptoms and low NIHSS . Recommended treating her with aspirin and Plavix for 3 months and single antiplatelet after that Hospital Course # Acute and transient right-sided weakness, right facial numbness, right eye visual disturbance, headache, and vertigo suspicious for acute transient ischemic attack (TIA). present on admission. Resolved. - imaging of brain without any evidence of acute finding (as noted above) - patient reports complete resolution of her symptoms and requesting d/c home - Echo unremarkable as noted above - will d/c home w/ Plavix and ASA for 3 month and then change to Plavix only after 3 months (as noted by Fredy in his H&P per recommendation by [facility] consult) # Chronic diabetes mellitus. poorly controlled. - HgA1C 12.6 - further f/u and management per PCP as outpatient # Hypertension, chronic. stable by day of d/c CN II-XII grossly intact. lungs CTA bilat. Exam Vital Signs (Last) Date Time Temp Pulse Resp B/P Pulse Ox O2 Delivery O2 Flow Rate FiO2 08/29/16 14:39 36.7 77 18 148/83 96 Room Air Test 08/28/16 16:42 08/29/16 06:45 White Blood Count 6.1th/mm3 (3.8-10.1) Red Blood Count 4.93mil/mm3 (3.90-5.20) Hemoglobin 15.2g/dL (12.0-15.6) Hematocrit 42.0% (35.0-46.0) Mean Corpuscular Volume 85.2fL (81-100) Mean Corpuscular Hemoglobin 30.8pg (27.0-35.0) Mean Corpuscular Hemoglobin Concent 36.2% (32.0-37.0) Red Cell Distribution Width 12.1% (12.3-15.4) Platelet Count 229bil/L (150-400) Neutrophils (%) (Auto) 42.2% (40-74) Lymphocytes (%) (Auto) 46.6% (14-46) Monocytes (%) (Auto) 9.0% (4-12) Eosinophils (%) (Auto) 1.5% (0-5) Basophils (%) (Auto) 0.5% (0-3) Prothrombin Time 9.9sec (8.1-12.5) Prothromb Time International Ratio 0.93ratio Activated Partial Thromboplast Time 22.9sec (22.8-33.0) D-Dimer < 0.5mg/L FEU (<0.50) Hemoglobin A1c 12.6% (4.8-5.6) Troponin T < 0.010ug/L (0.0-0.011) Hold Ansari Top Tube Received (Received) Sodium Level 136mEq/L (134-144) Potassium Level 3.8mEq/L (3.5-5.2) Chloride Level 102mEq/L (97-108) Carbon Dioxide Level 20mmol/L (18-29) Blood Urea Nitrogen 14mg/dL (6-24) Creatinine 0.30mg/dL (0.57-1.00) Estimat Glomerular Filtration Rate 340mL/min (>59) Glucose Level 380mg/dL (60-99) Calcium Level 7.8mg/dL (8.5-10.1) Magnesium Level 1.5mg/dL (1.6-2.6) Total Bilirubin 0.3mg/dL (0.0-1.2) Aspartate Amino Transf (AST/SGOT) 11U/L (0-50) Alanine Aminotransferase (ALT/SGPT) 13U/L (0-32) Alkaline Phosphatase 84U/L (25-150) Total Protein 5.4g/dL (6.4-8.4) Albumin 3.3g/dL (3.4-5.0) Triglycerides Level 509mg/dL (0-149) Cholesterol Level 202mg/dL (100-199) LDL Cholesterol, Calculated 73.200mg/dL (0-99) VLDL Cholesterol 101.800mg/dL HDL Cholesterol 27mg/dL (>39) Cholesterol/HDL Ratio 7.48 (0.0-4.4) Discharge Medications Discharge Medications Aspirin Chew (Aspirin Chew) 81 Mg Tablet 81 MG PO DAILY Prescribed by: SIENA IVEY MD Atorvastatin Calcium (Atorvastatin Calcium) 20 Mg Tablet 20 MG PO HS Prescribed by: SIENA IVEY MD Clopidogrel (Clopidogrel) 75 Mg Tablet 75 MG PO DAILY Prescribed by: CONSTANTIN DEGROOT MD Insulin Glargine (Lantus U100 Insulin Vial) 100 Unit/Ml Vial 50 UNIT SUBQ HS ( Reported) Lisinopril (Zestril) 10 Mg Tablet 10 MG PO HS (Reported) Additional med instructions Take both Aspirin and Plavix (Clopidogrel) for 3 month and then after that you may stop taking Aspirin but should continue with Plavix. Followup with your primary care provider in the meantime for possible further recommendations. Followup Plan Disposition: Home Follow-up plan 1. Followup with primary care provider in 4-7 days for further management of your diabetes and consideration of possible outpatient neurology referral. Discharge Diet: Low fat, Low Sodium, Heart Healthy, Diabetic Discharge Activity: No restrictions Patient Instructions Seek immediate medical attention if any new or worsening signs or symptoms occur. Follow-up Provider: Sergei Steven DO Time spent 35 min copies to: Sergei Steven Masoud Aug 29, 2016 19:40
== END 2016-08-29 17:56 | disposition home or self-care (01) ==
LOC: SED 16:14 → MPC 18:51
PROVIDERS: ADMIT Internal Medicine; ATTEND Internal Medicine
DX: R53.1 Weakness (principal); R20.0 Anesthesia of skin; H53.8 Other visual disturbances; R42 Dizziness and giddiness; E11.65 Type 2 diabetes mellitus with hyperglycemia; I10 Essential (primary) hypertension; R29.701 NIHSS score 1; J45.909 Unspecified asthma, uncomplicated; F41.9 Anxiety disorder, unspecified; F32.9 Major depressive disorder, single episode, unspecified; Z79.82 Long term (current) use of aspirin; Z86.73 Personal history of transient ischemic attack (TIA), and cerebral infarction without residual deficits; Z79.4 Long term (current) use of insulin
CPT/HCPCS: 36415; 70450; 70496; 70498; 70544; 70551; 80053; 80061; 82948; 83036; 83735; 84484; 85025; 85378; 85610; 85730; 92610; 93005; 96372; 97161; 99285; C8929; G0378; G8996; G8997; G8998; J1815; J7030; Q9967

== ENCOUNTER 2016-10-09 20:15 | Emergency (ER) | payer OTHER ==
[~2016-10-09] VITALS: Ht 152.4 cm; Wt 88.2 kg
[~2016-10-09 20:15] MED LIST changes: +CLOP75TA28 PO; -IBUP-1827 PO; -INSU100V7; +INSU100V7 SUBQ; -LVF250T PO; -METF500T7 PO
[2016-10-09 20:19] VITALS: BP 139/90; PULSE 112; RESP 22; O2SAT 98
[2016-10-09 20:40] LABS: BASOPHILS % (AUTO) 0.3 % (0-3); EOSINOPHILS % (AUTO) 1.1 % (0-5); MONOCYTES % (AUTO) 8.5 % (4-12); Mean Corpuscular Hemoglobin 30.8 pg (27.0-35.0); Mean Corpuscular Volume 85.6 fL (81-100); NEUTROPHILS % (AUTO) 68.8 % (40-74); Platelet Count 240 bil/L (150-400)
[2016-10-09 21:05] VITALS: BP 127/69; PULSE 96; RESP 28; O2SAT 98
[2016-10-09 22:41] VITALS: BP 134/68; PULSE 99; RESP 26; O2SAT 95
--- NOTE | 2016-10-09 22:44 | ED.REPORT ---
HPI-URI / Cough / Cold Date of Service Oct 09, 2016 ED Provider: Marck Diana DO A 50 year old female with a history of TIA, asthma, anxiety, hypertension, and distant pneumonia is referred to the ED from Urgent Care complaining of chest pain, fever, and chills. The pt has been experiencing the fever and chills for the last few days and developed the chest pain at 15:00 today. She also admits to mild cough and pleuritic pain. The pt denies history of blood clot. She has received an influenza vaccination this year. Nursing Notes Stated Complaint: CHEST PAIN,FEVER Chief Complaint: FLU/Cold Symptoms Nursing Notes Reviewed: Yes Allergies: Coded Allergies: iodine (Verified Allergy, Severe, 10/09/16) Penicillins (Verified Allergy, Mild, rash, 10/09/16) phenazopyridine (Verified Allergy, Mild, 10/09/16) Scheduled Aspirin Chew (Aspirin Chew) 81 Mg Tablet 81 MG PO DAILY Atorvastatin Calcium (Atorvastatin Calcium) 20 Mg Tablet 20 MG PO HS Clopidogrel (Clopidogrel) 75 Mg Tablet 75 MG PO DAILY Insulin Glargine (Lantus U100 Insulin Vial) 100 Unit/Ml Vial 50 UNIT SUBQ HS Lisinopril (Zestril) 10 Mg Tablet 10 MG PO HS General Time Seen by MD: 22:44 Chief Complaint Other (Chest pain) Hx Obtained From: Patient Arrived By: Walk-in Onset Occurred: 9 - 12 hours ago Symptom Duration: Since onset Recent Healthcare: No recent hospitalization, Recent doctor visit Similar Sx Previous: No Past Medical History Past Medical History IDDM TIA Asthma Hypertension Anxiety Depression Pneumonia Past Surgical History Tubal ligation Smoking History Never Smoker Social History Other Social History: , Local resident Occupation PRODUCT SUPPORT ANALYST at [employer] Ambulatory Status Independent Review of Systems Constitutional: Reports: Chills, Fever Respiratory: Reports: Non-productive cough, Pleuritic pain, Denies: Shortness of breath Skin: Denies Rash Complete sys rev & neg: except as marked. Cardiovascular: Reports: Chest pain Musculoskeletal: Denies: Back pain, Neck pain Physical Exam Initial Vital Signs Vital Signs (First) Date Time Temp Pulse Resp B/P Pulse Ox O2 Delivery O2 Flow Rate FiO2 10/09/16 20:19 37.7 112 22 139/90 98 Room Air Initial VS: Reviewed General/Constitutional: Awake, Alert splinting with respirations due to pain ENT: Atraumatic, Airway patent, Mucous membranes moist Respiratory / Chest: Atraumatic, Breath sounds NL, Breath sounds = bilat, No respiratory distress Head / Eyes: Atraumatic, Normocephalic, PERRL, EOMI Neck: Atraumatic, Supple, Full range of motion Cardiovascular: Heart rate NL, Regular rhythm, Heart sounds NL Abdomen: Atraumatic, Soft, Non-tender Skin: Atraumatic, Color NL, No rash, Warm, Dry Neurologic: Oriented X3, Speech NL, No motor deficits, No sensory deficits Back: Atraumatic, Full range of motion Upper Extremity / MS: Atraumatic, Full range of motion Lower Extremity / Pelvis / MS: Atraumatic, Full range of motion Psychiatric: Affect NL, Mood NL Interpretation & Diagnostics Lab Results Interpretation Result Diagram: 10/09/16203110/09/162031 Test 10/09/16 20:32 10/10/16 00:12 10/10/16 00:45 White Blood Count 9.7th/mm3 (3.8-10.1) Red Blood Count 4.87mil/mm3 (3.90-5.20) Hemoglobin 15.0g/dL (12.0-15.6) Hematocrit 41.7% (35.0-46.0) Mean Corpuscular Volume 85.6fL (81-100) Mean Corpuscular Hemoglobin 30.8pg (27.0-35.0) Mean Corpuscular Hemoglobin Concent 36.0% (32.0-37.0) Red Cell Distribution Width 12.2% (12.3-15.4) Platelet Count 240bil/L (150-400) Neutrophils (%) (Auto) 68.8% (40-74) Lymphocytes (%) (Auto) 21.2% (14-46) Monocytes (%) (Auto) 8.5% (4-12) Eosinophils (%) (Auto) 1.1% (0-5) Basophils (%) (Auto) 0.3% (0-3) D-Dimer < 0.5mg/L (<0.50) Sodium Level 136mEq/L (134-144) Potassium Level 4.0mEq/L (3.5-5.2) Chloride Level 99mEq/L (97-108) Carbon Dioxide Level 20mmol/L (18-29) Blood Urea Nitrogen 17mg/dL (6-24) Creatinine 0.44mg/dL (0.57-1.00) Estimat Glomerular Filtration Rate 219mL/min (>59) Glucose Level 347mg/dL (60-99) Calcium Level 8.5mg/dL (8.5-10.1) Total Bilirubin 0.5mg/dL (0.0-1.2) Aspartate Amino Transf (AST/SGOT) 11U/L (0-50) Alanine Aminotransferase (ALT/SGPT) 17U/L (0-32) Alkaline Phosphatase 113U/L (25-150) Total Protein 7.0g/dL (6.4-8.4) Albumin 4.1g/dL (3.4-5.0) Hold Ansari Top Tube Received (Received) Urine Color Yellow (YELLOW) Urine Appearance Cloudy (CLEAR,HAZY) Urine pH 6.0 (5.0-8.0) Urine Specific [place] 1.020 (1.003-1.035) Urine Protein Negativemg/dL (NEG,TRACE) Urine Glucose (UA) >1000mg/dL (NEGATIVE) Urine Ketones Tracemg/dL (NEGATIVE) Urine Occult Blood Trace (NEGATIVE) Urine Nitrite Positive (NEGATIVE) Urine Bilirubin Negative (NEGATIVE) Urine Urobilinogen Normalmg/dL (NORMAL) Urine Leukocyte Esterase Trace (NEGATIVE) Urine RBC 0-2/hpf (0-2) Urine WBC >50/hpf (0-5) Urine Epithelial Cells Moderate/hpf (NONE-MOD) Urine Crystals None seen (NONE SEEN) Urine Bacteria Many/hpf (NONE-FEW) Urine Hyaline Casts None/lpf (NONE) Urine Granular Casts None seen (NONE SEEN) Urine Waxy Casts None seen (NONE SEEN) Urine Red Blood Cell Casts None seen (NONE SEEN) Urine White Blood Cell Casts None seen (NONE SEEN) Urine Mucus None seen (None Seen) Urine Trichomonas None seen (NONE SEEN) Urine Yeast None (NONE SEEN) Urinalysis Comment None Urine Culture Reflexed Indicated Hold Urine Received (Received) Troponin T 0.010ug/L (0.0-0.011) Pulse Oximetry Interpretation Pulse Oximetry Interpretation: 98% on room air Pulse Oximetry: Pulse Ox normal Pulse Oximetry Interpretation: 98% on room air Pulse Oximetry: Pulse Ox normal Pulse Oximetry Interpretation: 95% on room air Pulse Oximetry: Pulse Ox normal ECG Interpretation ECG Interpretation: sinus tachycardia with a rate of 101 left anterior fascicular block, unchanged from prior EKG no voltage criteria for STEMI voltage criteria for LVH Time: 20:52 Interpreted by: ED physician X-Ray Chest Interpretation Chest Xray Interpretation: small retrocardiac opacity Interpretation / Wet Read by: Wet read ED physician Re-Eval/Medical Decision Med Decision/Clinical Course Healthy 50-year-old female presents with fever, chills, body ache and cough. She also has some flank pain. She looked like she had an infectious component. She is coughing with sputum. Her chest x-ray was reassuring. Her urine was obviously infected. Serial troponin's were negative. EKG did not show any dynamic changes [place] was ruled out. PE was ruled out with pulmonary embolus rule out criteria negative d-dimer. She is medicated with pain medicine fluids and ceftriaxone. She looked and felt much better. At discharge she was pain free. I will place her on a course of antibiotics for the urine infection. She will also be placed in some pain medication she still has body aches. Recommend next day follow-up or at least follow-up on Friday at the latest. Routine opiate warnings were given. Source of Hx: Old records Re-Evaluation/Progress : Time of Eval: 02:31 Patient Status: Condition improved Re-Evaluation/Progress Note: Pt rechecked, who is resting. Diagnosis and the plan for discharge are discussed. The pt understands and agrees with the plan. All questions are addressed at this time. Counseled Regarding: Diagnosis, Lab results, Need for follow-up, When/why to return to ED Discharge & Departure Impression: Primary Impression: Urinary tract infection Urinary tract infection type: site unspecified Hematuria presence: without hematuria Qualified Code: N39.0 - Urinary tract infection, site not specified Additional Impressions: Pleuritic chest pain Febrile illness Cough Bronchitis Pneumonia Disposition: Home Discharge Condition All VS Reviewed: Yes Condition: Stable Patient Instructions: Acute Bronchitis (ED), Fever in Adults (ED), Urinary Tract Infection in Women (ED) Additional Instructions: Take Omnicef twice daily for 7 days. Finish the Z-pac. Take 1-2 Percocet as needed for severe pain. Do not drive, drink alcohol, or consume acetaminophen while taking the Percocet. Follow up with your primary care physician this week for further evaluation. Return to the emergency department if you develop any new or worsening symptoms. Referrals: [facility] (PCP) Ariane Attestation Portions of this note were transcribed by Andre Rhoades. I, Dr. Diana personally performed the history, physical exam and medical decision-making; I reviewed and confirmed the accuracy of the information in the transcribed note. Signed by: Ariane Sifuentes, 10/10/2016 and 0257. copies to: [facility] Todd P DO Oct 09, 2016 22:44 ANDRE RHOADES Oct 09, 2016 22:56
[2016-10-09] MEDS ORDERED: HYDROmorphone 0.5 mg/0.5 mL iSecure Syringe IVPUSH PRN (23:00)
[2016-10-09] MEDS ORDERED: Ondansetron 2 mg/mL 2 mL Inj IVPUSH PRN (23:00)
[2016-10-10 00:18] VITALS: BP 120/62; PULSE 92; RESP 16; O2SAT 92
[2016-10-10 00:25] LABS: APPEARANCE,URINE CLOUDY (CLEAR,HAZY); COLOR,URINE YELLOW (YELLOW)
[2016-10-10 00:26] LABS: OCCULT BLOOD,URINE TRACE (NEGATIVE); UROBILINOGEN,URINE NORMAL (NORMAL)
[2016-10-10] MEDS ORDERED: Sodium Chloride LOK Flush 10 mL Syringe IVFLUSH SCH (00:30)
[2016-10-10] MEDS ORDERED: cefTRIAXone Inj 2,000 MG in Dextrose 5% Minibag Plus 50 ML IV ONE (00:30)
[2016-10-10 01:50] VITALS: BP 118/59; PULSE 91; RESP 16; O2SAT 96
[2016-10-10 02:34] VITALS: BP 118/52; PULSE 93; RESP 20; O2SAT 98
[2016-10-10 02:41] VITALS: BP 118/52; PULSE 93; RESP 20; O2SAT 98
--- NOTE | 2016-10-10 09:14 | DRSVH ---
PROCEDURE: X-RAY CHEST, TWO VIEWS ([id number]) INDICATIONS: Fever/SOB TECHNIQUE: 2 views of the chest were acquired. COMPARISON: [facility], , CHEST 2VW, 05/12/2011, 9:54. FINDINGS: Surgical changes and devices: None. Lungs and pleura: No pleural effusions or pneumothorax. Lungs are clear. Mediastinum: Mediastinal contours are normal. Heart size is normal. Bones and chest wall: No suspicious bony abnormalities. Soft tissues appear unremarkable. IMPRESSION: No acute cardiopulmonary disease. Dictated by: Juan Major [facility] Interpreted: Denise Salgado MD on 10/10/2016 at 9:13 Transcribed by: ASHLEY on 10/10/2016 at 9:14 Approved by: Denise Salgado MD, PhD on 10/10/2016 at 16:49
== END 2016-10-10 02:42 | disposition home or self-care (01) ==
LOC: SED 20:15
DX: N39.0 Urinary tract infection, site not specified (principal); R07.81 Pleurodynia; R50.9 Fever, unspecified; R05 Cough; J40 Bronchitis, not specified as acute or chronic; J18.9 Pneumonia, unspecified organism; B96.20 Unspecified Escherichia coli [E. coli] as the cause of diseases classified elsewhere; E11.9 Type 2 diabetes mellitus without complications; I10 Essential (primary) hypertension; J45.909 Unspecified asthma, uncomplicated; Z86.73 Personal history of transient ischemic attack (TIA), and cerebral infarction without residual deficits; Z88.0 Allergy status to penicillin; Z88.8 Allergy status to other drugs, medicaments and biological substances; Z79.82 Long term (current) use of aspirin; Z79.4 Long term (current) use of insulin
CPT/HCPCS: 36415; 71020; 80053; 81000; 84484; 85025; 85379; 87086; 87088; 87186; 87804; 93005; 96365; 96375; 99285; J0696; J1170; J2405

== ENCOUNTER 2017-04-05 20:46 | Emergency (ER) | payer OTHER ==
[~2017-04-05] VITALS: Ht 152.4 cm; Wt 85.9 kg
[2017-04-05 21:00] VITALS: BP 127/88; PULSE 96; RESP 16; O2SAT 96
[2017-04-05 21:46] LABS: BASOPHILS % (AUTO) 0.3 % (0-3); EOSINOPHILS % (AUTO) 1.2 % (0-5); MONOCYTES % (AUTO) 8.2 % (4-12); Mean Corpuscular Hemoglobin 30.3 pg (27.0-35.0); NEUTROPHILS % (AUTO) 52.8 % (40-74); Platelet Count 266 bil/L (150-400)
--- NOTE | 2017-04-05 21:47 | ED.REPORT ---
HPI-General Illness Date of Service Apr 05, 2017 ED Provider: Dr. Perez The pt is a 51 y/o female on Aspirin with a hx of TIA, asthma, anxiety, hypertension, and distant pneumonia who presents to the ED with multiple complaints. She reports substernal "6/10" chest pain that radiates to her right chest and right shoulder, onset 3 hours ago while she was shopping. Associated sx include diaphoresis. She denies shortness of breath, arm pain and jaw pain. She also complains of severe frontal headache, dizziness, lightheadedness, right sided facial numbness, blurry vision, dizziness, lightheadedness, right arm weakness, and nausea. Her PCP recommended an MRI to rule out a pinched nerve. The pt also report flank pain and increased urinary frequency for a week. Nursing Notes Stated Complaint: CHEST PAIN/POSSIBLE UTI Chief Complaint: Neuro Symptoms/ Deficits Nursing Notes Reviewed: Yes Allergies: Coded Allergies: iodine (Verified Allergy, Severe, 04/05/17) Penicillins (Verified Allergy, Mild, rash, 04/05/17) phenazopyridine (Verified Allergy, Mild, 04/05/17) Scheduled Aspirin Chew (Aspirin Chew) 81 Mg Tablet 81 MG PO DAILY Atorvastatin Calcium (Atorvastatin Calcium) 20 Mg Tablet 20 MG PO HS Clopidogrel (Clopidogrel) 75 Mg Tablet 75 MG PO DAILY Insulin Glargine (Lantus U100 Insulin Vial) 100 Unit/Ml Vial 50 UNIT SUBQ HS Lisinopril (Zestril) 10 Mg Tablet 10 MG PO HS General Time Seen by MD: 21:57 Chief Complaint Multip medical complaints Hx Obtained From: Patient Arrived By: Walk-in Sudden in Onset?: Yes Onset Occurred: 1 - 4 hours ago Symptom Duration: Since onset Location: : Head Quality: Painful Severity: Current: Severe Severity: Maximum: Severe Past Medical History Past Medical History IDDM TIA Asthma Hypertension Anxiety Depression Pneumonia Past Surgical History Tubal ligation Smoking History Never Smoker Social History Other Social History: , Local resident Occupation WINDOWS SERVER ADMINISTRATOR at [employer] Ambulatory Status Independent Review of Systems Denies: jaw pain Full Review of Systems Respiratory: Denies: Shortness of breath Cardiovascular: Reports: Chest pain GI: Reports: Nausea Female: Reports: Flank pain, Urinary frequency Musculoskeletal: Reports: Joint pain (right shoulder), Denies: Extremity pain (arm pain bilaterally) Neurologic: Reports: Dizziness, Headache, Lightheaded, Numbness (right sided facial), Vision change (blurry), Weakness (right arm) Complete sys rev & neg: except as marked. Physical Exam Vital Signs Vital Signs Date Time Temp Pulse Resp B/P Pulse Ox O2 Delivery O2 Flow Rate FiO2 04/06/17 03:04 37 90 20 122/68 97 Room Air 04/06/17 00:45 97 21 116/64 93 Room Air 04/05/17 23:06 91 16 129/68 96 Room Air 04/05/17 21:00 36.9 96 16 127/88 96 Room Air Initial VS: Reviewed Head / Eyes: Atraumatic, Normocephalic Neck: Supple, Non-tender, Full range of motion Respiratory: Breath sounds normal, Clear to auscultation, No respiratory distress Cardiovascular: Regular rate & rhythm, Heart sounds normal, Intact distal pulses Abdomen / GI: Soft, Non-tender, No guarding, No rebound, No distention Extremities: Vascular intact, Neuro intact, No swelling, No tenderness Skin: Warm, Dry, No cyanosis Neurologic: Alert, Oriented, Nonfocal General/Constitutional: Awake, Alert, No acute distress, Well appearing, Cooperative Neurologic: Oriented X3, Speech NL, No motor deficits, No sensory deficits, CN II - XII intact, Reflexes equal bilat, Cerebellar NL, Memory NL, Gait NL Interpretation & Diagnostics CT pulmonary angiogram Impression: No evidence for PE. This report was transmitted to the emergency room at 04/06/17 12:11:52 AM PDT. Lab Results Interpretation Result Diagram: 04/05/17213204/05/17 213 Test 04/05/17 21:15 04/05/17 21:33 04/06/17 00:36 Urine Color Straw (YELLOW) Urine Appearance Clear (CLEAR,HAZY) Urine pH 6.0 (5.0-8.0) Urine Specific Gower 1.010 (1.003-1.035) Urine Protein Negativemg/dL (NEG,TRACE) Urine Glucose (UA) 1000mg/dL (NEGATIVE) Urine Ketones Tracemg/dL (NEGATIVE) Urine Occult Blood Trace (NEGATIVE) Urine Nitrite Negative (NEGATIVE) Urine Bilirubin Negative (NEGATIVE) Urine Urobilinogen Normalmg/dL (NORMAL) Urine Leukocyte Esterase Negative (NEGATIVE) Urine RBC 0-2/hpf (0-2) Urine WBC 0-5/hpf (0-5) Urine Epithelial Cells Occasional/hpf (NONE-MOD) Urine Crystals None seen (NONE SEEN) Urine Bacteria Many/hpf (NONE-FEW) Urine Hyaline Casts None/lpf (NONE) Urine Granular Casts None seen (NONE SEEN) Urine Waxy Casts None seen (NONE SEEN) Urine Red Blood Cell Casts None seen (NONE SEEN) Urine White Blood Cell Casts None seen (NONE SEEN) Urine Mucus None seen (None Seen) Urine Trichomonas None seen (NONE SEEN) Urine Yeast None (NONE SEEN) Urinalysis Comment None Urine Culture Reflexed Indicated Hold Urine Received (Received) White Blood Count 6.6th/mm3 (3.8-10.1) Red Blood Count 5.19mil/mm3 (3.90-5.20) Hemoglobin 15.7g/dL (12.0-15.6) Hematocrit 44.1% (35.0-46.0) Mean Corpuscular Volume 85.0fL (81-100) Mean Corpuscular Hemoglobin 30.3pg (27.0-35.0) Mean Corpuscular Hemoglobin Concent 35.6% (32.0-37.0) Red Cell Distribution Width 12.8% (12.3-15.4) Platelet Count 266bil/L (150-400) Neutrophils (%) (Auto) 52.8% (40-74) Lymphocytes (%) (Auto) 37.2% (14-46) Monocytes (%) (Auto) 8.2% (4-12) Eosinophils (%) (Auto) 1.2% (0-5) Basophils (%) (Auto) 0.3% (0-3) D-Dimer 0.53mg/L FEU (<0.50) Sodium Level 135mEq/L (134-144) Potassium Level 4.1mEq/L (3.5-5.2) Chloride Level 96mEq/L (97-108) Carbon Dioxide Level 22mmol/L (18-29) Blood Urea Nitrogen 13mg/dL (6-24) Creatinine 0.63mg/dL (0.57-1.00) Estimat Glomerular Filtration Rate 144mL/min (>59) Glucose Level 445mg/dL (60-99) Calcium Level 9.2mg/dL (8.5-10.1) Magnesium Level 1.9mg/dL (1.6-2.6) Total Bilirubin 0.3mg/dL (0.0-1.2) Aspartate Amino Transf (AST/SGOT) 21U/L (0-50) Alanine Aminotransferase (ALT/SGPT) 18U/L (0-32) Alkaline Phosphatase 143U/L (25-150) Total Protein 8.1g/dL (6.4-8.4) Albumin 4.3g/dL (3.4-5.0) Hold Ansari Top Tube Received (Received) Troponin T 0.010ug/L (0.0-0.011) ECG Interpretation ECG Interpretation: Left anterior fascicular block. When compared with previous 10/09/2016, heart rate has decreased, otherwise no significant change Time: 21:16 Normal ECG Interpretation: Normal rate (91), Normal sinus rhythm, No acute ischemic changes X-Ray Chest Interpretation Chest Xray Interpretation: No acute findings View: Portable Interpretation / Wet Read by: Wet read ED physician CT Head Interpretation Impression: No CT evidence of hemorrhage, mass, or actue infarct. This report was transmitted to the emergency room at 04/05/17 - 10:19:12 PM PDT. Study: Head CT no contrast Interpretation / Wet Read by: Interpret - Radiologist Re-Eval/Medical Decision Med Decision/Clinical Course 51-year-old diabetic patient presenting with headache, chest pain, shortness of breath, and urinary frequency. Head CT was negative. Headache initially worsened with nitroglycerin paste, although this did help her chest pain. Headache resolved after morphine was given. Her shortness of breath was investigated with CT chest with pulmonary embolus protocol which returned negative. Serial troponin returned negative as well. EKG showed no signs of ischemia. Based on her history of being a diabetic, I think she will benefit from a stress test as an outpatient. I advised her to follow up with her PCP and have this set up. Her UA also returned negative despite her complaints of urinary frequency. Patient was feeling much better at the time of discharge and understands the importance of follow-up with her PCP. She will call Friday for an appointment. We have ruled out acute coronary syndrome, no evidence of stroke here. Patient was treated with insulin for her blood sugars which improved, and she was advised that she will likely need to adjust her insulin doses, possibly adding mealtime insulin to control blood sugars. Source of Hx: Old records Time of Eval: 22:02 Re-Evaluation/Progress Note: Discussed the plan to do labs, imaging and administer Nitro, which may worsen her headache. She understands and agrees with the plan. All questions answered. Time of Eval: 00:43 Re-Evaluation/Progress Note: Rechecked pt and discussed lab results. Pt reports a headache currently. Counseled Regarding: Diagnosis, Lab results, Need for follow-up, When/why to return to ED Discharge & Departure Primary Impression: Chest pain Chest pain type: unspecified Qualified Code: R07.9 - Chest pain, unspecified Additional Impressions: SOB (shortness of breath) Headache Headache type: unspecified Headache chronicity pattern: unspecified pattern Intractability: intractable Qualified Code: R51 - Headache Hyperglycemia Urinary frequency Disposition: Home Discharge Condition All VS Reviewed: Yes Condition: Stable Additional Instructions: Thank for you entrusting us with your care today. Your labs and imaging results were all negative for any signs of anything life threatening or dangerous. There is no evidence of a UTI based on your urine as well. Follow up with your primary care provider early next week for a possible stress test for your heart. You may also want to consider a higher dose of Insulin medication as well. Please return to the emergency department if you experience any new or worsening symptoms. I hope you feel better soon. Referrals: [facility] (PCP) Scribe Attestation Portions of this note were transcribed by Cruz Blakely. I,, personally performed the history,physical exam and medical decision-making;I reviewed and confirmed the accuracy of the information in the transcribed note. Signed by Ariane Polanco. 04/05/17 copies to: [facility] Delgado Perez DO Apr 05, 2017 21:47 Cruz Blakely Apr 05, 2017 22:04 Sarwat Sharp Apr 06, 2017 00:55
[2017-04-05] MEDS ORDERED: 0.9% Sodium Chloride 1,000 ML IV ONE (22:04)
[2017-04-05] MEDS ORDERED: Ondansetron 2 mg/mL 2 mL Inj IVPUSH ONE (22:05)
[2017-04-05] MEDS ORDERED: Insulin GLARgine 100 Unit/mL Syringe SUBQ ONE (22:05)
[2017-04-05] MEDS ORDERED: Nitroglycerin 2% 1 Gm Ointment TOPICAL ONE (22:05)
[2017-04-05 22:09] LABS: TROPONIN T 0.01 ug/L (0.0-0.011)
[2017-04-05] MEDS ORDERED: Insulin LISPRO 300 Unit/3 mL Inj SUBQ ONE (22:10)
[2017-04-05 22:20] LABS: Magnesium 1.9 mg/dL (1.6-2.6)
[2017-04-05 23:06] VITALS: BP 129/68; PULSE 91; RESP 16; O2SAT 96
[2017-04-05 23:16] LABS: APPEARANCE,URINE CLEAR (CLEAR,HAZY); COLOR,URINE STRAW (YELLOW); OCCULT BLOOD,URINE TRACE (NEGATIVE); UROBILINOGEN,URINE NORMAL (NORMAL)
[2017-04-06 00:45] VITALS: BP 116/64; PULSE 97; RESP 21; O2SAT 93
[2017-04-06 03:04] VITALS: BP 122/68; PULSE 90; RESP 20; O2SAT 97
--- NOTE | 2017-04-06 07:28 | DRSVH ---
PROCEDURE: X-RAY CHEST ONE VIEW, PORTABLE ([id number]) INDICATIONS: chest pain TECHNIQUE: One view of the chest was acquired. COMPARISON: [facility], CR, XR CHEST 2VW, 10/09/2016, 20:34. FINDINGS: Surgical changes and devices: None. Lungs and pleura: No pleural effusions or pneumothorax. Lungs are clear. Mediastinum: Mediastinal contours appear normal. Heart size is normal. Bones and chest wall: No suspicious bony lesions. Overlying soft tissues appear unremarkable. IMPRESSION: No acute process. Dictated by: Cedrick Garcia M.D. on 04/06/2017 at 7:26 Approved by: Cedrick Garcia M.D. on 04/06/2017 at 7:26
--- NOTE | 2017-04-06 07:51 | DRSVH ---
PROCEDURE: CT BRAIN WITHOUT CONTRAST ([id number]) INDICATIONS: headache, subjective L sided weakness TECHNIQUE: Noncontrast 4.5 mm thick angled axial sections acquired from the foramen magnum to the vertex, with c oronal reformats. COMPARISON: [facility], CT, CT ANGIO BRAIN AND NECK, 08/28/2016, 17:39. [facility], CT, BRAIN ([facility]), 08/28/2016, 16:34. FINDINGS: Image quality: Excellent. CSF spaces: Basal cisterns are patent. No extra-axial fluid collections. Ventricles are normal in size and shape. Brain: No midline shift. No intracranial masses or hemorrhage. Thurman-white matter interface is norm al. Skull and face: Calvarium and visualized facial bones are intact, without suspicious lesions. Sinuses: Visualized sinuses and mastoids are clear. IMPRESSION: No acute process. Concordant with preliminary interpretation. Dictated by: Cedrick Garcia M.D. on 04/06/2017 at 7:49 Approved by: Cedrick Garcia M.D. on 04/06/2017 at 7:50
--- NOTE | 2017-04-06 07:58 | DRSVH ---
PROCEDURE: CT ANGIO CHEST PULMONARY EMBOLISM ([id number]) INDICATIONS: sob, chest pain TECHNIQUE: After the administration of intravenous contrast, 2 mm thick sections acquired from the pulmonary api laura to the posterior costophrenic angles. 3-dimensional maximum intensity projection (MIP) coronal a nd sagittal reformats were then acquired through the thorax. For radiation dose reduction, the follo wing was used: automated exposure control, adjustment of mA and/or kV according to patient size. COMPARISON: None. FINDINGS: Image quality: Excellent. Pulmonary arteries: Pulmonary arteries are normal in size, and demonstrate no intraluminal filling d efects to suggest central pulmonary embolism. Lungs and pleura: Lungs are clear. No pleural effusions or pneumothorax. Central and peripheral ai rways are patent. Mediastinum: Heart size is normal, without pericardial effusion. No mediastinal or hilar adenopathy . Thoracic aorta is normal in caliber and enhancement. Esophagus is normal in caliber. There is a m oderate hiatal hernia. Bones and chest wall: No suspicious bony lesions. Ribs and thoracic spine appear intact throughout. Thyroid gland is within normal limits. No axillary or supraclavicular adenopathy. Abdomen: Visualized upper abdominal solid organs appear normal in the early arterial phase of enhanc ement. IMPRESSION: 1. No acute process. 2. No pulmonary embolus. 3. Moderate hiatal hernia. 4. Dictated by: Cedrick Garcia M.D. on 04/06/2017 at 7:50 Approved by: Cedrick Garcia M.D. on 04/06/2017 at 7:57
== END 2017-04-06 03:05 | disposition home or self-care (01) ==
LOC: SED 20:46
DX: R07.9 Chest pain, unspecified (principal); R06.02 Shortness of breath; R51 Headache; E11.65 Type 2 diabetes mellitus with hyperglycemia; R35.0 Frequency of micturition; I10 Essential (primary) hypertension; Z86.73 Personal history of transient ischemic attack (TIA), and cerebral infarction without residual deficits; Z79.82 Long term (current) use of aspirin; Z79.4 Long term (current) use of insulin; Z88.0 Allergy status to penicillin; Z88.8 Allergy status to other drugs, medicaments and biological substances
CPT/HCPCS: 36415; 70450; 71010; 71275; 80053; 81000; 81025; 82948; 83735; 84484; 85025; 85378; 87077; 87086; 87088; 87186; 93005; 96374; 96375; 99285; J1815; J2270; J2405; J7030; Q9967